=== PATIENT | female | born 1960 ===

== ENCOUNTER 2018-01-01 06:34 | Day surgery (SDC) | payer BC ==
[~2018-01-01 06:34] MED LIST: Buffered Lidocaine 0.9% SYRIN* 5 ML/SYR SYRINGE INTRADERM ONE
[2018-01-01] MEDS ORDERED: Propofol* 10 MG/ML 20 ML BTL IV PUSH ONE (07:00)
[2018-01-01] MEDS ORDERED: fentaNYL* 50 MCG/ML 2 ML VIAL (100 MCG VIAL) ONE (07:01)
[2018-01-01] MEDS ORDERED: Midazolam* 1 MG/ML 2 ML VIAL (2 MG) ONE (07:01)
[2018-01-01] MEDS ORDERED: Ondansetron INJ* 2 MG/ML VIAL IV PRN (07:11)
[2018-01-01] MEDS ORDERED: Naloxone* 0.4 MG/ML 1 ML VIAL IV PRN (07:11)
[2018-01-01] MEDS ORDERED: Acetaminophen TAB* 325 MG PO PRN (07:11)
[2018-01-01] MEDS ORDERED: oxyCODONE/Acetamin 5/325 MG* TAB PO PRN (07:11)
[2018-01-01] MEDS ORDERED: fentaNYL* 50 MCG/ML 2 ML VIAL (100 MCG VIAL) IV PRN (07:11)
[2018-01-01] MEDS ORDERED: Bupivacaine 0.5%* 50 ML VIAL ONE (07:25)
[2018-01-01 08:16] VITALS: BP 103/75
--- NOTE | 2018-01-01 08:21 | OP ---
Operative Report - Blank - Operative Report Date of Operation: 01/01/18 Note: Provider: Pj Bruce MD DATE OF OPERATION: 01/01/18 - [facility] DATE OF : 64 SURGEON: Pj Bruce MD. SLUICE TENDER: HEAVEN Espinoza ANESTHESIOLOGIST: Dylon Luo MD. ANESTHESIA: Local MAC PRE-OP DIAGNOSIS: Right middle trigger finger. POST-OP DIAGNOSIS: Right middle trigger finger. OPERATIVE PROCEDURE: Right middle trigger finger release with release of A1 seamus. INDICATIONS: Josephine has a right middle trigger finger that has recurred after an injection. We talked about treatment options and the patient wanted to proceed with surgical release. ESTIMATED BLOOD LOSS: 2 mL. COMPLICATIONS: None. FINDINGS: As expected. DESCRIPTION OF PROCEDURE: Josephine was seen in the preoperative holding area. The correct side, site, and procedure were identified. We came back to the operating room. I infiltrated the operative area with 0.25% Marcaine. The arm was prepped and draped in the usual fashion. Time-out was performed. The arm was exsanguinated with the Esmarch and the tourniquet was inflated to 250 mmHg. I made a 1 cm incision over the affected A1 seamus. Full thickness flaps were bluntly raised off the tendon sheath. Ragnell retractors were placed. I then longitudinally incised the A1 seamus on the radial third of the seamus. The release was completed proximally and distally with the tenotomy scissors. There was abundant tenosynovitis which I excised. Once I confirmed a complete release the skin was then closed with 4-0 nylon. The wound was dressed , tourniquet deflated, and the patient was taken to the recovery room in stable condition.
== END 2018-01-01 08:25 | disposition home or self-care (01) ==
LOC: OREAST 06:34
PROVIDERS: ATTEND Orthopaedic Surgery Hand Surgery
DX: M65.331 Trigger finger, right middle finger (principal); Z87.891 Personal history of nicotine dependence; J30.2 Other seasonal allergic rhinitis
CPT/HCPCS: J2250; J2704; J3010